=== PATIENT | male | born 1990 | race Two or more races ===

== ENCOUNTER 2017-03-16 17:43 | Inpatient (IN) | payer SELFPAY ==
[~2017-03-16] VITALS: Ht 170.2 cm; Wt 83.5 kg
[2017-03-16] MEDS ORDERED: SODIUM CHLORIDE FLUSH 10ML SYR IVF ONE (18:30)
[2017-03-16] MEDS ORDERED: MORPHINE SULFATE 4 MG/ML, 1ML IVPush PRN (18:30)
[2017-03-16 18:53] LABS: ASPARTATE AMINO TRANSFERASE 10 U/L (15-37); BLOOD UREA NITROGEN 19 mg/dL (7-18)
[2017-03-16 18:58] LABS: DIFF TOTAL CELLS COUNTED 100 CELL DIFF
[2017-03-16 19:00] LABS: VERIFY COUNTS? YES
[2017-03-16] MEDS ORDERED: AMPICILLIN/SULBACTAM 3 GM in SODIUM CHLORIDE 0.9% 100 ML IV ONE (19:00)
[2017-03-16] MEDS ORDERED: SODIUM CHLORIDE 0.9% 1,000ML IVBOLUS ONE (19:00)
[2017-03-16] MEDS ORDERED: MORPHINE SULFATE 4 MG/ML, 1ML ONE (19:26)
[2017-03-16] MEDS ORDERED: ACETAMINOPHEN 500 MG TABLET ONE (19:27)
[2017-03-16] MEDS ORDERED: ACETAMINOPHEN 325 MG TABLET PO ONE (19:30)
[2017-03-16] MEDS ORDERED: ACETAMINOPHEN 500 MG TABLET PO ONE (19:30)
[2017-03-16] MEDS ORDERED: SODIUM CHLORIDE 0.9% 1,000 ML IV ONE (19:31)
[2017-03-16] MEDS ORDERED: SODIUM CHLORIDE FLUSH 10ML SYR IVF PRN (20:00)
[2017-03-16] MEDS: IBUPROFEN 600 MG TABLET PO PRN (20:25)
[2017-03-16] MEDS ORDERED: IBUPROFEN 200 MG TABLET ONE (20:29)
[2017-03-16 21:30] VITALS: BP 116/61
[2017-03-16] MEDS ORDERED: ENOXAPARIN 40 MG/0.4 ML SQ SCH (23:00)
[2017-03-16] MEDS ORDERED: DOCUSATE 100 MG CAPSULE PO PRN (23:00)
[2017-03-16] MEDS ORDERED: morphine SULFATE 10 MG/ML, 1ML IVPush PRN (23:00)
[2017-03-16] MEDS ORDERED: ACETAMINOPHEN 325 MG TABLET PO PRN (23:00)
[2017-03-16] MEDS ORDERED: POLYETHYLENE GLYCOL 17 GM PACKET PO PRN (23:00)
[2017-03-16] MEDS: HYDROcodone/APAP 5/325 TABLET PO PRN (23:41)
[2017-03-16] MEDS: NS + 20MEQ KCL 1,000 ML IV SCH (23:41)
[2017-03-17] VITALS (10 sets, daily range): BP systolic 101–123; BP diastolic 48–72
[2017-03-17] MEDS ORDERED: SODIUM CHLORIDE 0.9%, 500ML IVBOLUS ONE (00:30)
[2017-03-17] MEDS: AMPICILLIN/SULBACTAM 3 GM in SODIUM CHLORIDE 0.9% 100 ML IV SCH ×3 (01:43→14:29)
[2017-03-17] MEDS: HYDROcodone/APAP 5/325 TABLET PO PRN ×3 (05:27→22:37)
[2017-03-17 05:59] LABS: BLOOD UREA NITROGEN 14 mg/dL (7-18)
[2017-03-17 06:59] LABS: DIFF TOTAL CELLS COUNTED 100 CELL DIFF
[2017-03-17 07:01] LABS: VERIFY COUNTS? YES
[2017-03-17] MEDS: NS + 20MEQ KCL 1,000 ML IV SCH (09:00)
[2017-03-17] MEDS ORDERED: VANCOMYCIN PMX 1GM/200ML 200 ML IV ONE (10:30)
[2017-03-17] MEDS ORDERED: PHARMACOKINETIC MONITORING MC PRN (10:30)
[2017-03-17] MEDS ORDERED: VANCOMYCIN PER PHARMACY MC PRN (10:30)
[2017-03-17] MEDS: IBUPROFEN 600 MG TABLET PO PRN ×2 (11:34→20:05)
[2017-03-17] MEDS: VANCOMYCIN 1,500 MG in SODIUM CHLORIDE 0.9% 250 ML IV SCH ×2 (11:34→22:32)
[2017-03-17] MEDS: ONDANSETRON 2MG/ML, 2ML IVPush PRN (14:29)
[2017-03-17] MEDS: PIPERACILLIN/TAZO/PMX 3.375GM 50 ML IV SCH (20:05)
[2017-03-18] MEDS: PIPERACILLIN/TAZO/PMX 3.375GM 50 ML IV SCH ×2 (00:51→08:13)
[2017-03-18] MEDS ORDERED: OMNIPAQUE 350 MG/ML, 100ML BOTTLE ONE (01:36)
[2017-03-18 04:43] VITALS: BP 112/68
[2017-03-18 05:34] LABS: BLOOD UREA NITROGEN 9 mg/dL (7-18)
[2017-03-18 07:04] VITALS: BP 105/66
[2017-03-18 10:49] VITALS: BP 140/61
[2017-03-18] MEDS: HYDROcodone/APAP 5/325 TABLET PO PRN (11:05)
[2017-03-18] MEDS: VANCOMYCIN 1,500 MG in SODIUM CHLORIDE 0.9% 250 ML IV SCH (11:28)
[2017-03-18] MEDS: ONDANSETRON 2MG/ML, 2ML IVPush PRN (11:32)
[2017-03-18] MEDS: CEFTAROLINE 600 MG in SODIUM CHLORIDE 0.9% 100 ML IV SCH (13:46)
[2017-03-18 16:05] VITALS: BP 100/60
[2017-03-18 19:20] VITALS: BP 119/75
[2017-03-18] MEDS: IBUPROFEN 600 MG TABLET PO PRN (21:47)
[2017-03-19 01:11] VITALS: BP 103/63
[2017-03-19] MEDS: CEFTAROLINE 600 MG in SODIUM CHLORIDE 0.9% 100 ML IV SCH ×2 (01:24→14:12)
[2017-03-19 06:55] VITALS: BP 98/69
[2017-03-19 13:30] VITALS: BP 111/67
[2017-03-19] MEDS: IBUPROFEN 600 MG TABLET PO PRN (14:15)
[2017-03-19 19:02] VITALS: BP 127/73
[2017-03-20 01:20] VITALS: BP 118/66
[2017-03-20] MEDS: CEFTAROLINE 600 MG in SODIUM CHLORIDE 0.9% 100 ML IV SCH ×2 (01:39→14:53)
[2017-03-20 07:05] VITALS: BP 118/65
[2017-03-20 13:48] VITALS: BP 130/65
[2017-03-20 18:30] VITALS: BP 123/72
[2017-03-21 01:42] VITALS: BP 112/63
[2017-03-21] MEDS: CEFTAROLINE 600 MG in SODIUM CHLORIDE 0.9% 100 ML IV SCH ×2 (02:36→16:05)
[2017-03-21 06:15] VITALS: BP 110/74
[2017-03-21 13:39] VITALS: BP 107/64
[2017-03-21 18:36] VITALS: BP 120/73
[2017-03-22 00:55] VITALS: BP 106/59
[2017-03-22] MEDS: CEFTAROLINE 600 MG in SODIUM CHLORIDE 0.9% 100 ML IV SCH (04:49)
[2017-03-22 06:43] VITALS: BP 109/68
[2017-03-22] MEDS ORDERED: CEPHALEXIN 500 MG CAPSULE PO SCH (10:30)
[2017-03-22 12:18] VITALS: BP 117/76
[2017-03-22] MEDS ORDERED: CEPH-376 PO (13:14)
== END 2017-03-22 15:35 | disposition home or self-care (01) | DRG 872 ==
LOC: ED 19:57 → EDIP 20:15 → 3NE 21:18 → DCLOUNGE 03-22 14:48
PROVIDERS: ADMIT Family Medicine; ATTEND Family Medicine
DX: A41.9 Sepsis, unspecified organism (principal); L03.113 Cellulitis of right upper limb; L02.413 Cutaneous abscess of right upper limb; F17.210 Nicotine dependence, cigarettes, uncomplicated; H91.93 Unspecified hearing loss, bilateral
CPT/HCPCS: 36415; 80048; 80053; 81001; 83605; 83735; 84145; 85025; 87040; 96361; 96365; 96375; J0295; J0712; J1650; J2405; J2543; J3370; J3480; Q9967; J7030; J7040; J7050